=== PATIENT | female | born 1960 | race Caucasian/White ===

== ENCOUNTER 2018-09-15 13:09 | Observation (INO) | payer MEDICARE, SELFPAY ==
[2018-09-15 13:28] VITALS: BMI 33.0
[2018-09-15 13:29] VITALS: BMI 33.0
--- NOTE | 2018-09-15 13:52 | NURSING ---
PT IN ROOM, SHE PHONED HER COUNSELOR KIT ON CELLPHONE AND UPDATED ON SITUATION- PT STATES SHE WANTS TO GO HOME, AFTER SPEAKING WITH KIT FURTHER- PT AGREES TO STAY FOR A COUPLE HOURS TO SEE HOW SYMPTOMS ARE MANAGED. KIT REQUESTS PT CALL HER BACK WITH UPDATE IN COUPLE OF HOURS.
--- NOTE | 2018-09-15 13:55 | DCINST_ITS ---
You will use the following diet at home:: Cardiac Your food should be the consistency of: Regular Discharge Activity: Return to Normal Activity Call your doctor if you observe: - - increased agitation, tremulousness, hallucinations. Primary Care Physician: Jesus Alberto Yoo MD [Primary Care Provider] - Test Results: Test results from this visit will be discussed in further detail at your follow- up appointment, if applicable. Proposed Discharge Date: 09/15/18
--- NOTE | 2018-09-15 13:55 | PCM.HP.STD ---
Problem List (1) Anxiety Status: Acute History of Present Illness Date of Admission: 09/15/18 Chief Complaint: anxiety The patient is a 58 year old F presents to the counseling center and was brought to division as patient is expressing a desire to quit drinking alcohol. Patient drinks roughly half bottle of low proof vodka. Patient's last drink was 10 AM those were tight with nausea and headache. Patient presented Via [facility] and had an intake CIWA score of 20. When I evaluated patient patient's CIWA was an 11. Patient stated that she was recently in nursing home this past and she was there for about 24 hours. Patient stated that she blacked out and woke up naked on the floor there. She did not mention withdrawal symptoms at that time. [] Past Medical History Medical History: Medical History (Last Updated 09/15/18 @ 13:58 by Shivam Enriquez DO) Anxiety F41.9 Fibromyalgia M79.7 Lupus M32.9 HTN (hypertension) I10 Home Medications: Ambulatory Orders Medication Instructions Recorded Lovastatin 20 mg PO QHS 09/15/18 Smoking Status: Heavy Smoker (>10/day) Tobacco Use: Cigarettes Alcohol: Heavy Drugs: None - *Family History Maternal Family History: Family History (Last Updated 09/15/18 @ 13:58 by Shivam Enriquez DO) Other Lupus Review of Systems Constitutional: Denies: Anorexia, Chills, Fever Eyes: Denies: Blurred vision, Double vision HEENT: Denies: Head Aches, Sinus Congestion, Sinus Drainage Cardiovascular: Denies: Chest Pain, Palpitations Respiratory: Denies: Cough, Shortness of breath at rest, Sputum production Gastrointestinal: Reports: Nausea. Denies: Abdominal Pain, Vomiting Musculoskeletal: Reports: - - diffuse myalgias Skin: Denies: Dryness, Jaundice Neurological: Denies: Numbness, Tingling, Focal weakness Psychiatric: Reports: Anxiety. Denies: Depression Endocrine: Denies: Change in Body Habitus Hematologic/ Lymphatic: Denies: Easy Bruising, Easy Bleeding, Hx of blood clot Comment: A 10 point review of systems were negative except as mentioned in the history of present illness and the other review of systems. VTE Information - Inpt Only VTE Present on Admission: No VTE Mechan Device Prophylaxis: None VTE Pharm Prophylaxis ordered?: No Reason prophylaxis not ordered:: Procedure Not Indicated Patient Problems: Active and Suspected Problems Anxiety (Acute) Objective: Did not get the opportunity to do a full exam is 20 told patient I do not have justification to keep her here in the hospital for alcohol withdrawal at this time. Patient immediately shooed me away out of her room. - Physical Exam General: Alert, - - anxious. Patient rocking back and forth. When patient was informed that they did not have justification to keep her in her hospital, her demeanor changed, patient was no longer rocking back and forth nor writhing. Patient became very confrontational at that point in time and immediately went to her phone without any difficulties and started dialing in number. HEENT: Atraumatic, Normocephalic Psych/Mental Status: Agitated, Anxious Weight: 76.6 kg Body Mass Index (BMI) 33.0 Assessment/Plan All Active Problems Anxiety (Acute) 1. Anxiety: Feels most the patient's symptoms are be related rather than alcohol withdrawal. Feel patient be better suited at a psychiatric facility or outpatient counseling for treatment of her anxiety. 2. Alcohol abuse: CIWA was 11. I informed the patient that her withdrawal symptoms were not severe enough for me to keep her here in the hospital at this time. I did offer her several more hours to see if her symptoms got worse so that I could initiate treatment for that. Patient became immediately upset and then started calling someone so that she can leave. Patient did not seem receptive to that option of staying here to see if her symptoms got worse. I did encourage her to seek out further treatment. 3. History of lupus: Inquired what type of lupus she had and she was not able to tell me. Patient stated that it involved her skin and involved her nerve system attacking her stent skin from the inside out. I asked if she is seeing a flow coordinator and she initially said no but then she said that she was seeing physician in [place] who was either gabapentin or Lyrica. Unsure if patient does have lupus she does have lupus if it is discoid. She does not appear to be on any medications for SLE. Code Visit OBSV E&M: 22242 Observ/hosp same date L2
--- NOTE | 2018-09-15 14:00 | HP.PCM_ITS ---
Problem List (1) Anxiety Status: Acute History of Present Illness Date of Admission: 09/15/18 Chief Complaint: anxiety The patient is a 58 year old F presents to the counseling center and was brought to division as patient is expressing a desire to quit drinking alcohol. Patient drinks roughly half bottle of low proof vodka. Patient's last drink was 10 AM those were tight with nausea and headache. Patient presented Via [facility] and had an intake CIWA score of 20. When I evaluated patient patient's CIWA was an 11. Patient stated that she was recently in alf this past and she was there for about 24 hours. Patient stated that she blacked out and woke up naked on the floor there. She did not mention withdrawal symptoms at that time. [] Past Medical History Medical History: Medical History (Last Updated 09/15/18 @ 13:58 by Shivam Enriquez DO) Anxiety F41.9 Fibromyalgia M79.7 Lupus M32.9 HTN (hypertension) I10 Home Medications: Ambulatory Orders Medication Instructions Recorded Lovastatin 20 mg PO QHS 09/15/18 Smoking Status: Heavy Smoker (>10/day) Tobacco Use: Cigarettes Alcohol: Heavy Drugs: None - *Family History Maternal Family History: Family History (Last Updated 09/15/18 @ 13:58 by Shivam Enriquez DO) Other Lupus Review of Systems Constitutional: Denies: Anorexia, Chills, Fever Eyes: Denies: Blurred vision, Double vision HEENT: Denies: Head Aches, Sinus Congestion, Sinus Drainage Cardiovascular: Denies: Chest Pain, Palpitations Respiratory: Denies: Cough, Shortness of breath at rest, Sputum production Gastrointestinal: Reports: Nausea. Denies: Abdominal Pain, Vomiting Musculoskeletal: Reports: - - diffuse myalgias Skin: Denies: Dryness, Jaundice Neurological: Denies: Numbness, Tingling, Focal weakness Psychiatric: Reports: Anxiety. Denies: Depression Endocrine: Denies: Change in Body Habitus Hematologic/ Lymphatic: Denies: Easy Bruising, Easy Bleeding, Hx of blood clot Comment: A 10 point review of systems were negative except as mentioned in the h istory of present illness and the other review of systems. VTE Information - Inpt Only VTE Present on Admission: No VTE Mechan Device Prophylaxis: None VTE Pharm Prophylaxis ordered?: No Reason prophylaxis not ordered:: Procedure Not Indicated Patient Problems: Active and Suspected Problems Anxiety (Acute) Objective: Did not get the opportunity to do a full exam is 20 told patient I do not have justification to keep her here in the hospital for alcohol withdrawal at this time. Patient immediately shooed me away out of her room. - Physical Exam General: Alert, - - anxious. Patient rocking back and forth. When patient was informed that they did not have justification to keep her in her hospital, her demeanor changed, patient was no longer rocking back and forth nor writhing. Sigifredo susanna became very confrontational at that point in time and immediately went to her phone without any difficulties and started dialing in number. HEENT: Atraumatic, Normocephalic Psych/Mental Status: Agitated, Anxious Weight: 76.6 kg Body Mass Index (BMI) 33.0 Assessment/Plan All Active Problems Anxiety (Acute) 1. Anxiety: Feels most the patient's symptoms are be related rather than alcohol withdrawal. Feel patient be better suited at a psychiatric facility or outpatient counseling for treatment of her anxiety. 2. Alcohol abuse: CIWA was 11. I informed the patient that her withdrawal symptoms were not severe enough for me to keep her here in the hospital at this time. I did offer her several more hours to see if her symptoms got worse so that I could initiate treatment for that. Patient became immediately upset and then started calling someone so that she can leave. Patient did not seem receptive to that option of staying here to see if her symptoms got worse. I did encourage her to seek out further treatment. 3. History of lupus: Inquired what type of lupus she had and she was not able to tell me. Patient stated that it involved her skin and involved her nerve system attacking her stent skin from the inside out. I asked if she is seeing a security system analyst and she initially said no but then she said that she was seeing physician in [place] who was either gabapentin or Lyrica. Unsure if patient does have lupus she does have lupus if it is discoid. She does not appear to be on any medications for SLE. Code Visit OBSV E&M: 74716 Observ/hosp same date L2
--- NOTE | 2018-09-15 14:04 | PCM.DC.SUM ---
Discharge Date and Diagnosis - Problem List Patient Problems: Active and Suspected Problems (Last Updated 09/15/18 @ 13:58 by Shivam Enriquez DO) Anxiety (Acute) Date of Admission: 09/15/18 Date of Discharge: 09/15/18 - Primary Discharge Diagnosis Active and Suspected Problems (Last Updated 09/15/18 @ 13:58 by Shivam Enriquez DO) Anxiety (Acute) Hospital Course and Treatment Operations: None Procedures: None Summary of Care Provided: The patient is a 58 year old F presents Via [facility] for alcohol withdrawal. Essentially it seems most the patient's symptoms are more the rather than acute alcohol withdrawal at this time. Patient given the opportunity to stay in the hospital to worse in regards to her alcohol withdrawal but she declined immediately. Please see the history and physical for further details. [] Patient Problems: Active and Suspected Problems (Last Updated 09/15/18 @ 13:58 by Shivam Enriquez DO) Anxiety (Acute) - Physical Exam Weight: 76.6 kg Body Mass Index (BMI) 33.0 Discharge Diet: Low fat/ Low Cholesterol Discharge Activity: Return to Normal Activity Call your doctor if you observe: - - increased agitation, tremulousness, hallucinations. Home Medications: Medications to take at Discharge Lovastatin 20 mg PO QHS 09/15/18 Primary Care Physician: Jesus Alberto Yoo MD [Primary Care Provider] - Disposition: Home Patient Condition:: Fair Medical Necessity - Tobacco Use Smoking Status: Heavy Smoker (>10/day) Tobacco Use: Cigarettes Meaningful Use Info Meaningful Use Diagnoses (Choose all that apply): None applicable
[2018-09-15 14:18] VITALS: BP 137/80; PULSE 87; RESP 18; TEMP 37.1
[2018-09-15 16:17] VITALS: BP 132/83; PULSE 80; RESP 18; TEMP 37
== END 2018-09-15 16:35 | disposition home or self-care (01) ==
PROVIDERS: Family Provider Family Medicine; PCP Family Medicine
DX: F41.9 Anxiety disorder, unspecified (principal); Z79.899 Other long term (current) drug therapy; F17.210 Nicotine dependence, cigarettes, uncomplicated; F10.20 Alcohol dependence, uncomplicated; M79.7 Fibromyalgia; M32.9 Systemic lupus erythematosus, unspecified; I10 Essential (primary) hypertension
CPT/HCPCS: 99406